=== PATIENT | female | born 1940 | race Asian ===

== ENCOUNTER 2017-07-07 11:37 | Outpatient (CLI) | payer OTHER, MEDICAID | END 2017-07-07 21:09 | disposition home or self-care (01) | LOC: MRD 11:37 | PROVIDERS: ATTEND Internal Medicine Pulmonary Disease | DX: Z01.811 Encounter for preprocedural respiratory examination (principal); J44.9 Chronic obstructive pulmonary disease, unspecified; J98.8 Other specified respiratory disorders | CPT/HCPCS: 71046; Q0092 ==